=== PATIENT | male | born 1990 | race Caucasian/White ===

== ENCOUNTER 2016-10-26 10:57 | Outpatient (CLI) | payer OTHER ==
[~2016-10-26 10:57] MED LIST: APRISO0.375 GM PO; ASACOL HD800 MG ORAL; DILAUDID2 MG ORAL; LEVAQUIN500 MG ORAL; LOMOTIL TABLET1 EACH ORAL; METRONIDAZOLE375 MG ORAL; NKM; PERCOCET 5-3251 EACH ORAL; PREDNISONE20 MG ORAL; PURINETHOL50 MG ORAL; UCERIS9 MG PO; [UNRECOGNIZED DRUG - OTHER] PO
[2016-10-26 12:42] LABS: BASOPHILS % (AUTO) 0.5 % (0.0-2.0); EOSINOPHILS % (AUTO) 0.4 % (0.0-3.0); LYMPHOCYTES % (AUTO) 18.7 % (20.0-45.0); MEAN CORPUSCULAR HEMOGLOBIN 35.1 PG (27.0-31.0); MEAN CORPUSCULAR VOLUME 100 FL (80-99); MEAN PLATELET VOLUME 6.5 FL (6.5-10.1); MONOCYTES % (AUTO) 6.5 % (1.0-10.0); NEUTROPHILS % (AUTO) 73.9 % (45.0-75.0); PLATELET COUNT 245 K/UL (150-450); RED BLOOD COUNT 4.58 M/UL (4.70-6.10); RED CELL DISTRIBUTION WIDTH 11.9 % (11.6-14.8); WHITE BLOOD COUNT 4.4 K/UL (4.8-10.8)
[2016-10-26 12:50] LABS: ALANINE AMINOTRANSFERASE 33 U/L (3-41); ANION GAP 11 (5-15); ASPARTATE AMINO TRANSFERASE 35 U/L (5-40); CALCIUM 9.8 mg/dL (8.6-10.2); CARBON DIOXIDE 28 mEQ/L (20-30); CHLORIDE 97 mEQ/L (98-107); GLOMERULAR FILTRATION RATE > 60 mL/min (>60); POTASSIUM 3.7 mEQ/L (3.4-4.9); SODIUM 136 mEQ/L (135-145); TOTAL PROTEIN 7.4 g/dL (6.6-8.7)
[2016-10-26 12:51] LABS: ALBUMIN/GLOBULIN RATIO 1.9 (1.0-2.7); CRP QUANT < 0.3 mg/dL (< 0.5); HEMOLYSIS 14
[2016-10-26 13:03] LABS: BILIRUBIN,DIRECT 0.2 mg/dL (0.1-0.3)
[2016-10-26 14:03] LABS: ERYTHROCYTE SEDIMENTATION RATE 4 MM/HR (0-15)
[2016-10-27 08:11] LABS: IMMUNOGLOBULIN A 133 mg/dL (90-386)
[2016-10-28 10:19] LABS: GLIADIN IGG AB 2 units (0-19)
== END 2016-10-26 11:10 | disposition home or self-care (01) ==
LOC: PAN 10:57
DX: K58.0 Irritable bowel syndrome with diarrhea (principal)
CPT/HCPCS: 36415; 80053; 82248; 82784; 83516; 83520; 85025; 85651; 86140; 86255

== ENCOUNTER 2017-05-12 13:00 | Outpatient (CLI) | payer OTHER ==
[2017-05-12 16:33] LABS: BASOPHILS % (AUTO) 0.8 % (0.0-2.0); EOSINOPHILS % (AUTO) 1.7 % (0.0-3.0); HEMATOCRIT 48.7 % (42.0-52.0); HEMOGLOBIN 17.3 G/DL (14.2-18.0); LYMPHOCYTES % (AUTO) 29.6 % (20.0-45.0); MEAN CORPUSCULAR VOLUME 98 FL (80-99); MONOCYTES % (AUTO) 7.6 % (1.0-10.0); NEUTROPHILS % (AUTO) 60.3 % (45.0-75.0); PLATELET COUNT 217 K/UL (150-450); RED BLOOD COUNT 4.98 M/UL (4.70-6.10); WHITE BLOOD COUNT 3.6 K/UL (4.8-10.8)
[2017-05-12 16:48] LABS: ALANINE AMINOTRANSFERASE 111 U/L (12-78); ALBUMIN 4.4 G/DL (3.4-5.0); ALBUMIN/GLOBULIN RATIO 1.2 (1.0-2.7); ALKALINE PHOSPHATASE 99 U/L (46-116); ANION GAP 8 mmol/L (5-15); ASPARTATE AMINO TRANSFERASE 117 U/L (15-37); BILIRUBIN,TOTAL 1.1 MG/DL (0.2-1.0); BLOOD UREA NITROGEN 12 mg/dL (7-18); CALCIUM 9.5 MG/DL (8.5-10.1); CARBON DIOXIDE 32 MMOL/L (21-32); CHLORIDE 102 MMOL/L (98-107); CREATININE 1.1 MG/DL (0.55-1.30); POTASSIUM 3.5 MMOL/L (3.5-5.1); SODIUM 142 MMOL/L (136-145)
[2017-05-12 16:53] LABS: BILIRUBIN,DIRECT 0.1 MG/DL (0.0-0.3)
== END 2017-05-12 13:32 | disposition home or self-care (01) ==
LOC: PAN 13:00
DX: K50.90 Crohn's disease, unspecified, without complications (principal)
CPT/HCPCS: 36415; 80053; 82248; 85025

== ENCOUNTER 2017-05-17 10:58 | Outpatient (CLI) | payer OTHER | END 2017-05-17 11:33 | disposition home or self-care (01) | LOC: PAN 10:58 | DX: R94.5 Abnormal results of liver function studies (principal) | CPT/HCPCS: 36415 ==

== ENCOUNTER 2017-05-24 09:29 | Outpatient (CLI) | payer OTHER | END 2017-05-24 11:29 | disposition home or self-care (01) | LOC: LAB 09:29 | DX: K58.9 Irritable bowel syndrome, unspecified (principal); R79.89 Other specified abnormal findings of blood chemistry ==

== ENCOUNTER 2018-06-09 08:00 | Day surgery (SDC) | payer OTHER ==
[2018-06-09] VITALS (8 sets, daily range): BP systolic 108–118; BP diastolic 62–84
[~2018-06-09] VITALS: Ht 177.8 cm; Wt 74.8 kg
[2018-06-09] MEDS ORDERED: LR 1000ml 1,000 ML IVLG SCH (08:59)
--- NOTE | 2018-06-09 08:59 | Anethesia Preoperative Eval ---
Anesthesia Pre-op PMH/ROS General Date of Evaluation: Jun 09, 2018 Time of Evaluation: 08:54 Anesthesiologist: Buddy ASA Score: ASA 2 Mallampati Score Class I : Soft palate, uvula, fauces, pillars visible Class II: Soft palate, uvula, fauces visible Class III: Soft palate, base of uvula visible Class IV: Only hard plate visible Mallampati Classification: Class II Surgeon: Ricky Diagnosis: Colitis Surgical Procedure: Colonoscopy Anesthesia History: none Family History: no anesthesia problems Allergies: Coded Allergies: No Known Allergies (Unverified , 01/22/13) Medications: see eMAR Patient NPO?: Yes Past Medical History Cardiovascular: Denies: HTN, CAD, [place], valve dz, arrhythmia, other Pulmonary: Denies: asthma, COPD, [place], other Gastrointestinal/Genitourinary: Reports: GERD, other - UC Neurologic/Psychiatric: Reports: depression/anxiety; Denies: dementia, CVA, TIA, other Endocrine: Denies: DM, hypothyroidism, steroids, other HEENT: Denies: cataract (L), cataract (R), glaucoma, [place] other Hematology/Immune: Denies: anemia, DVT, bleeding disorder, other Musculoskeletal/Integumentary: Denies: OA, RA, DJD, DDD, edema, other PMH Narrative: as above PSxH Narrative: see H&P Anesthesia Pre-op Phys. Exam Physician Exam Last Vital Signs Date Time Temp Pulse Resp B/P (MAP) Pulse Ox O2 Delivery O2 Flow Rate FiO2 06/09/18 08:47 97.4 74 20 117/67 98 Room Air Constitutional: NAD Neurologic: CN 2-12 intact Cardiovascular: RRR, no M/R/G Airway Exam Mallampati Score: Class II MO: full Neck: flexible ROM: full Teeth: intact Dentures: no upper, no lower Anesthesia Pre-op A/P Risk Assessment & Plan Assessment: ASA 2 Plan: MAC Status Change Before Surgery: Per Andujar MD Jun 09, 2018 08:59
[2018-06-09] MEDS ORDERED: Meperidine 50mg/ml Inj(FOR RIGORS ONLY) IV PRN (09:00)
--- NOTE | 2018-06-09 09:24 | Pre-Procedure Note/Attestation ---
Pre-Procedure Note/Attestation Complete Prior to Procedure Planned Procedure: not applicable Procedure Narrative: colonoscopy Indications for Procedure Pre-Operative Diagnosis: uc Attestation I attest that I discussed the nature of the procedure; its benefits; risks and complications; and alternatives (and the risks and benefits of such alternatives ), prior to the procedure, with the patient (or the patient's legal sales representative girls[employer] apparel). I attest that, if there was a reasonable possibility of needing a blood transfusion, the patient (or the patient's legal sales representative girls' apparel) was given the [facility] standardized written summary, pursuant to the [place] Blood Safety Act ([place] Health and Safety Code # 1645, as amended). I attest that I re-evaluated the patient just prior to the surgery and that there has been no change in the patient's H&P, except as documented below: Pedro García MD Jun 09, 2018 09:24
--- NOTE | 2018-06-09 09:25 | Short Stay Surgery H&P ---
History of Present Illness History of Present Illness Chief Complaint uc HPI Jerzy Stanley is a 28 year old male who was admitted on for Abdominal Pain Patient History Allergies: Coded Allergies: No Known Allergies (Unverified , 01/22/13) PAST MEDICAL HISTORY: (1) Crohn's disease of ileum Onset Date: Unknown (2) Abdominal pain Medication History Scheduled Diphenoxylate Hcl/Atropine (Lomotil Tablet), 1 TAB ORAL PRN, (Reported) Mercaptopurine* (Purinethol*), 100 MG ORAL DAILY, (Reported) Mesalamine (Apriso), 2 PO DAILY, (Reported) Discontinued Medications Mesalamine (Asacol Hd), 2,400 MG ORAL BID, (Reported) Discontinued Reason: Pt stopped taking med Review of Systems Cardiovascular: Reports: no symptoms Respiratory: Reports: no symptoms Skeletal: Reports: no symptoms Gastrointestinal: Reports: no symptoms Genitourinary: Reports: no symptoms Neurologic: Reports: no symptoms Endocrine: Reports: no symptoms Hematologic: Reports: no symptoms Physical Exam Vital Signs Last Vital Signs Date Time Temp Pulse Resp B/P (MAP) Pulse Ox O2 Delivery O2 Flow Rate FiO2 06/09/18 08:47 97.4 74 20 117/67 98 Room Air Labs Laboratory Tests Test 06/09/18 08:55 Total Bilirubin Pending Direct Bilirubin Pending Aspartate Amino Transf (AST/SGOT) Pending Alanine Aminotransferase (ALT/SGPT) Pending Alkaline Phosphatase Pending Total Protein Pending Albumin Pending Skin: normal HENT: normal Heart: normal Lungs: normal Abdomen: normal Extremities: normal Plan Plan of Care colonoscopy Attestation Are the patient's medical conditions optimized for surgery? Attestation Response: yes Pedro García MD Jun 09, 2018 09:25
--- NOTE | 2018-06-09 09:43 | Endoscopy Procedure Note ---
Endoscopy Procedure Note General Indication for Procedure: colitis Procedures Performed: colonoscopy Operative Findings/Diagnosis: hemorrhoids Specimen: yes Pt Tolerated Procedure Well: Yes Estimated Blood Loss: none Anesthesia Anesthesiologist: julián Anesthesia: MAC Inserted Devices Implant(s) used?: No Quality Quality of Bowel Preparation: Good Did scope reach the cecum?: Yes Was there any complications?: No GI Core Measures 50 yrs or older w/o bx or poly: Not Applicable 10yrs. F/U not recommended: Not Applicable Pedro García MD Jun 09, 2018 09:43
--- NOTE | 2018-06-09 09:52 | Immediate Post-Op Evaluation ---
Immediate Post-Op Evalulation Immediate Post-Op Evalulation Procedure: Colonoscopy Date of Evaluation: Jun 09, 2018 Time of Evaluation: 09:51 IV Fluids: 400 Blood Products: none Estimated Blood Loss: none Urinary Output: none Blood Pressure Systolic: 109 Blood Pressure Diastolic: 72 Pulse Rate: 64 Respiratory Rate: 20 O2 Sat by Pulse Oximetry: 99 Temperature (Fahrenheit): 97.6 Pain Score (1-10): 1 Nausea: No Vomiting: No Complications none Patient Status: reacts, patent, none Hydration Status: adequate Per Goodwin MD Jun 09, 2018 09:52
[2018-06-09 10:08] LABS: ALANINE AMINOTRANSFERASE 53 U/L (12-78); ALBUMIN 4.8 G/DL (3.4-5.0); ALKALINE PHOSPHATASE 124 U/L (46-116); ASPARTATE AMINO TRANSFERASE 35 U/L (15-37); BILIRUBIN,DIRECT 0.4 MG/DL (0.0-0.3); BILIRUBIN,TOTAL 3.3 MG/DL (0.2-1.0)
--- NOTE | 2018-06-09 17:45 | Procedure Note ---
DATE OF PROCEDURE: 06/09/2018 SURGEON: Pedro García M.D. PROCEDURE: Colonoscopy with biopsy. ANESTHESIA: Per Dr. Goodwin. INSTRUMENT: Olympus adult flexible colonoscope. INDICATION: History of colitis, needed 2-year followup colonoscopy. REASON FOR PROCEDURE: The procedure, risks, benefits, and possible consequences, including hemorrhage, aspiration, perforation and infection, and alternative treatments, were explained to the patient/legal guardian by Dr. Pedro García and the patient/legal guardian understood and accepted these risks. PROCEDURE IN DETAIL: After informed consent was obtained and the patient was adequately sedated, first rectal exam was performed which was positive for internal hemorrhoids. Then, the scope was advanced from the rectum into the anastomosis. The patient has history of right hemicolectomy. There was minimal erythema at the anastomosis, which was biopsied. The rest of the colonic mucosa grossly looked within normal limit. There was no evidence of any acute colitis. No ulcerative polyps. Random biopsy from the transverse colon, sigmoid colon, and rectum was obtained. The patient tolerated the procedure very well without any complication. Retroflexion of rectum showed evidence of internal hemorrhoids. SUMMARY OF FINDINGS: 1. Right hemicolectomy. 2. Normal colonoscopy examination otherwise. 3. Status post random biopsy of the transverse, sigmoid and rectum. 4. Internal hemorrhoids. RECOMMENDATIONS: Follow up biopsy results and treat accordingly. Pedro García M.D. DR: RAYMOND JOB#: [id number] CC:
== END 2018-06-09 11:05 | disposition home or self-care (01) ==
LOC: GAS 08:00
DX: K52.9 Noninfective gastroenteritis and colitis, unspecified (principal); Z90.49 Acquired absence of other specified parts of digestive tract; K64.8 Other hemorrhoids; K50.00 Crohn's disease of small intestine without complications; K21.9 Gastro-esophageal reflux disease without esophagitis; F32.9 Major depressive disorder, single episode, unspecified; F41.9 Anxiety disorder, unspecified
CPT/HCPCS: 36415; 80076; 94003; 94150